=== PATIENT | male | born 1940 | race Caucasian/White ===

== ENCOUNTER → 2019-09-28 07:45 | Outpatient (BNVA) | payer BC, SELFPAY | PROVIDERS: Family Provider Internal Medicine; PCP Internal Medicine; Visit Provider Specialist | DX: M46.96 Unspecified inflammatory spondylopathy, lumbar region (principal); F41.9 Anxiety disorder, unspecified; Z87.891 Personal history of nicotine dependence | CPT/HCPCS: 99213 ==

== ENCOUNTER → 2019-12-27 07:46 | Outpatient (BNVA) | payer BC, SELFPAY | PROVIDERS: Family Provider Internal Medicine; PCP Internal Medicine; Visit Provider Specialist | DX: G89.29 Other chronic pain (principal); M48.07 Spinal stenosis, lumbosacral region; R29.90 Unspecified symptoms and signs involving the nervous system; M54.16 Radiculopathy, lumbar region; M48.061 Spinal stenosis, lumbar region without neurogenic claudication; Z79.891 Long term (current) use of opiate analgesic | CPT/HCPCS: 99213 ==

== ENCOUNTER → 2020-03-27 07:54 | Outpatient (BNVA) | payer BC, SELFPAY | PROVIDERS: Family Provider Internal Medicine; PCP Internal Medicine; Visit Provider Specialist | DX: M48.061 Spinal stenosis, lumbar region without neurogenic claudication (principal) | CPT/HCPCS: 99213 ==

== ENCOUNTER → 2020-08-15 14:42 | Outpatient (BNVA) | payer BC, SELFPAY | PROVIDERS: Family Provider Internal Medicine; PCP Internal Medicine; Visit Provider Specialist | DX: M48.061 Spinal stenosis, lumbar region without neurogenic claudication (principal); M54.16 Radiculopathy, lumbar region; R29.90 Unspecified symptoms and signs involving the nervous system; Z87.891 Personal history of nicotine dependence | CPT/HCPCS: 99214 ==

== ENCOUNTER → 2020-11-06 08:45 | Outpatient (BNVA) | payer BC, SELFPAY | PROVIDERS: Family Provider Internal Medicine; PCP Internal Medicine; Visit Provider Specialist | DX: M48.061 Spinal stenosis, lumbar region without neurogenic claudication (principal); M54.16 Radiculopathy, lumbar region; Z87.891 Personal history of nicotine dependence | CPT/HCPCS: 99213; 99214 ==

== ENCOUNTER → 2021-01-29 12:52 | Outpatient (BNVA) | payer BC, SELFPAY | PROVIDERS: Family Provider Internal Medicine; PCP Internal Medicine; Visit Provider Specialist | DX: M54.16 Radiculopathy, lumbar region (principal); M48.061 Spinal stenosis, lumbar region without neurogenic claudication; Z79.891 Long term (current) use of opiate analgesic; Z87.891 Personal history of nicotine dependence | CPT/HCPCS: 99213; 99214 ==

== ENCOUNTER → 2021-04-30 08:06 | Outpatient (BNVA) | payer MEDICARE, SELFPAY | PROVIDERS: Family Provider Internal Medicine; PCP Internal Medicine; Visit Provider Specialist | DX: M48.061 Spinal stenosis, lumbar region without neurogenic claudication (principal); M54.16 Radiculopathy, lumbar region | CPT/HCPCS: 99213; 99214 ==

== ENCOUNTER → 2021-09-19 07:59 | Outpatient (BNVA) | payer MEDICARE, SELFPAY | PROVIDERS: Family Provider Internal Medicine; PCP Internal Medicine; Visit Provider Specialist | DX: M54.16 Radiculopathy, lumbar region (principal); Z79.891 Long term (current) use of opiate analgesic | CPT/HCPCS: 99213 ==

== ENCOUNTER → 2021-12-12 08:29 | Outpatient (BNVA) | payer MEDICARE, SELFPAY | PROVIDERS: Family Provider Internal Medicine; PCP Internal Medicine; Visit Provider Specialist | DX: M48.061 Spinal stenosis, lumbar region without neurogenic claudication (principal); F41.9 Anxiety disorder, unspecified; Z79.891 Long term (current) use of opiate analgesic | CPT/HCPCS: 99213; 99214 ==

== ENCOUNTER → 2022-04-01 13:02 | Outpatient (BNVA) | payer MEDICARE, SELFPAY | PROVIDERS: Family Provider Internal Medicine; PCP Internal Medicine; Visit Provider Specialist | DX: M47.20 Other spondylosis with radiculopathy, site unspecified (principal); M48.00 Spinal stenosis, site unspecified; F41.9 Anxiety disorder, unspecified; Z79.891 Long term (current) use of opiate analgesic | CPT/HCPCS: 99213; 99214 ==

== ENCOUNTER 2022-06-28 08:37 | Outpatient (CLI) | payer MEDICARE, SELFPAY ==
--- NOTE | 2022-06-28 09:00 | MR_ITS ---
WS: [id number] MRI LUMBAR SPINE NONCONTRAST HISTORY: Spinal stenosis. Chronic back pain. COMPARISON: 10/27/2012 TECHNIQUE: Sagittal and axial multisequence imaging is submitted. Mild straightening of the normal upper lumbar lordosis. Increase in the lower lumbar lordosis. 1 to 2 mm retrolisthesis of L1-L4. No fractures or marrow edema. There is mild anterior wedging of T12 and L1. Disc spaces are narrowed and moderately desiccated. Conus terminates normally at L1-2 disc level. L1-L2: Normal. L2-L3: Mild annular disc bulging and osteophytosis encroaching upon the ventral thecal sac. Moderate ligamentum flavum and facet arthritis. Mild central, bilateral subarticular recess and foraminal narr owing. L3-L4: Diffuse osteophytic ridging with retrolisthesis of L3. Mild annular disc bulging with ligament um flavum and facet arthritis. Mild central stenosis. Disc and osteophyte encroachment into the subar ticular recesses and foramen. Moderate subarticular recess and foraminal stenosis. L4-L5: Mild retrolisthesis of L4. Annular disc bulging with osteophytosis. Severe ligamentum flavum h ypertrophy and facet arthritis. Fluid in the facet joints. Moderate central stenosis. Severe bilatera l subarticular recess and foraminal stenosis. There is encroachment upon both the L4 and L5 nerve ward ts. L5-S1: Mild annular disc bulging with ligamentum flavum and facet arthritis. Very small central disc protrusion. Mild bilateral foraminal stenosis. Paravertebral soft tissues demonstrate renal atrophy. Mild atherosclerosis aorta. MR/MR lumbar spine wo con* [id number] IMPRESSION: 1. 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 2. Moderate central stenosis at L4-5 with severe bilateral subarticular recess and foraminal stenosis. There is encroachment upon the L4 and L5 nerve roots b ilaterally. 3. Mild central, bilateral subarticular recess and foraminal stenosis at L2-3. 4. Mild central stenosis at L3-4 with moderate subarticular recess and foramin al stenosis. 5. Mild foraminal stenosis at L5-S1. 6. Mild anterior wedging of T12 and L1. Similar to the prior study.
--- NOTE | 2022-06-28 09:45 | MR_ITS ---
WS: [id number] MRI THORACIC SPINE without contrast HISTORY: M48.061 - Spinal stenosis, lumbar region without neurogen... COMPARISON: None available. TECHNIQUE: Multiplanar sequences are performed in sagittal and axial planes. Straightening of the normal thoracic lordosis. More focal kyphosis at the thoracolumbar junction. Sub tle area of increased T2 signal within the T8 vertebral body. This is of very low signal on the T1 se quence. Mild anterior wedging of T8-L1. T1-2: Small central disc protrusion. Mild foraminal narrowing due to facet disease. T2-3: Normal. T3-4: Normal. T4-5: Normal. T5-6: Mild facet arthritis. T6-7: Mild facet arthritis. T7-8: Moderate LEFT paracentral disc protrusion with no cord contact. T8-9: Mild facet arthritis. T9-10: Mild bilateral facet arthritis and foraminal narrowing. T10-11: Mild annular disc bulging and osteophytic ridging. Moderate facet joint arthritis with encro achment into the foramina. Small RIGHT paracentral disc osteophyte. T11-12: Mild foraminal narrowing and facet arthritis. Small lesions scattered throughout the liver are probably cysts. These can be further evaluated by ul trasound or CT. Mild atherosclerosis aorta. MR/MR thoracic spin wo con* [id number] IMPRESSION: 1. Very minimal anterior wedging of T8-L1. No acute fracture. 2. Mild increased signal in the T8 vertebral body with very low signal on the T1 sequences. Trabecular injury versus metastatic disease. Consider follow-up b one scan imaging. 3. Moderate LEFT paracentral disc protrusion at T7-8 without significant steno sis. 4. Small central disc protrusion at T1-2. 5. Moderate facet joint arthritis at T10-11. Small RIGHT paracentral disc oste ophyte at T10-11. 6. Scattered lesions within the liver. These may be cysts. Consider follow-up ultrasound evaluation.
== END 2022-06-28 08:38 | disposition home or self-care (01) ==
LOC: RAD 08:37
PROVIDERS: PCP Internal Medicine; Visit Provider Specialist
DX: M48.061 Spinal stenosis, lumbar region without neurogenic claudication (principal); M54.16 Radiculopathy, lumbar region; M51.24 Other intervertebral disc displacement, thoracic region; M47.814 Spondylosis without myelopathy or radiculopathy, thoracic region; K76.9 Liver disease, unspecified; M25.78 Osteophyte, vertebrae; M48.07 Spinal stenosis, lumbosacral region; M48.55XA Collapsed vertebra, not elsewhere classified, thoracolumbar region, initial encounter for fracture
CPT/HCPCS: 72146; 72148

== ENCOUNTER → 2022-07-31 08:22 | Outpatient (BNVA) | payer MEDICARE, SELFPAY | PROVIDERS: PCP Internal Medicine; Visit Provider Specialist | DX: M47.26 Other spondylosis with radiculopathy, lumbar region (principal); G40.309 Generalized idiopathic epilepsy and epileptic syndromes, not intractable, without status epilepticus; M48.061 Spinal stenosis, lumbar region without neurogenic claudication; Y93.9 Activity, unspecified | CPT/HCPCS: 99214 ==

== ENCOUNTER → 2022-09-26 08:51 | Outpatient (BNVA) | payer MEDICARE, SELFPAY | PROVIDERS: PCP Internal Medicine; Visit Provider Orthopaedic Surgery | DX: M54.16 Radiculopathy, lumbar region (principal); M47.816 Spondylosis without myelopathy or radiculopathy, lumbar region; M47.814 Spondylosis without myelopathy or radiculopathy, thoracic region | CPT/HCPCS: 72072; 72110; 99204 ==

== ENCOUNTER → 2022-10-29 07:55 | Outpatient (BNVA) | payer MEDICARE, SELFPAY | PROVIDERS: PCP Internal Medicine; Visit Provider Specialist | DX: G40.309 Generalized idiopathic epilepsy and epileptic syndromes, not intractable, without status epilepticus (principal); M47.816 Spondylosis without myelopathy or radiculopathy, lumbar region; M48.061 Spinal stenosis, lumbar region without neurogenic claudication; S22.000A Wedge compression fracture of unspecified thoracic vertebra, initial encounter for closed fracture; X58.XXXA Exposure to other specified factors, initial encounter; Z79.891 Long term (current) use of opiate analgesic | CPT/HCPCS: 99213 ==

== ENCOUNTER → 2022-12-03 08:54 | Outpatient (BNVA) | payer MEDICARE, SELFPAY | PROVIDERS: PCP Internal Medicine; Visit Provider Orthopaedic Surgery | DX: M54.16 Radiculopathy, lumbar region (principal); M48.062 Spinal stenosis, lumbar region with neurogenic claudication | CPT/HCPCS: 99214 ==

== ENCOUNTER → 2023-01-29 09:15 | Outpatient (BNVA) | payer MEDICARE, SELFPAY | PROVIDERS: PCP Internal Medicine; Visit Provider Specialist | DX: G40.309 Generalized idiopathic epilepsy and epileptic syndromes, not intractable, without status epilepticus (principal); M48.062 Spinal stenosis, lumbar region with neurogenic claudication; F41.9 Anxiety disorder, unspecified; Z79.891 Long term (current) use of opiate analgesic | CPT/HCPCS: 99214 ==

== ENCOUNTER → 2023-04-30 07:59 | Outpatient (BNVA) | payer MEDICARE, SELFPAY | PROVIDERS: PCP Internal Medicine; Visit Provider Specialist | DX: M48.062 Spinal stenosis, lumbar region with neurogenic claudication; G40.309 Generalized idiopathic epilepsy and epileptic syndromes, not intractable, without status epilepticus; M54.16 Radiculopathy, lumbar region; F41.9 Anxiety disorder, unspecified | CPT/HCPCS: 99214 ==

== ENCOUNTER → 2023-07-22 09:42 | Outpatient (BNVA) | payer MEDICARE, SELFPAY | PROVIDERS: PCP Internal Medicine; Visit Provider Specialist | DX: M54.16 Radiculopathy, lumbar region (principal); M48.062 Spinal stenosis, lumbar region with neurogenic claudication | CPT/HCPCS: 99213 ==

== ENCOUNTER → 2023-10-14 07:49 | Outpatient (BNVA) | payer MEDICARE, SELFPAY | PROVIDERS: PCP Dermatology; Visit Provider Specialist | DX: M54.16 Radiculopathy, lumbar region (principal); M48.062 Spinal stenosis, lumbar region with neurogenic claudication | CPT/HCPCS: 99213 ==

== ENCOUNTER → 2024-01-13 09:18 | Outpatient (BNVA) | payer MEDICARE, SELFPAY | PROVIDERS: Visit Provider Specialist | DX: M54.16 Radiculopathy, lumbar region (principal); G40.309 Generalized idiopathic epilepsy and epileptic syndromes, not intractable, without status epilepticus | CPT/HCPCS: 99213 ==

== ENCOUNTER → 2024-04-23 07:53 | Outpatient (BNVA) | payer MEDICARE, SELFPAY | PROVIDERS: PCP Dermatology; Visit Provider Specialist | DX: M54.16 Radiculopathy, lumbar region (principal); G40.309 Generalized idiopathic epilepsy and epileptic syndromes, not intractable, without status epilepticus | CPT/HCPCS: 99213; 99214 ==

== ENCOUNTER → 2024-05-06 07:54 | Outpatient (BNVA) | payer MEDICARE, SELFPAY | PROVIDERS: PCP Dermatology; Visit Provider Orthopaedic Surgery | DX: Z01.818 Encounter for other preprocedural examination (principal); M48.062 Spinal stenosis, lumbar region with neurogenic claudication | CPT/HCPCS: 99214 ==

== ENCOUNTER → 2024-06-24 07:43 | Outpatient (BNVA) | payer MEDICARE, SELFPAY | PROVIDERS: PCP Dermatology; Visit Provider Specialist | DX: M54.16 Radiculopathy, lumbar region (principal); G40.309 Generalized idiopathic epilepsy and epileptic syndromes, not intractable, without status epilepticus | CPT/HCPCS: 99213 ==

== ENCOUNTER → 2024-09-23 07:55 | Outpatient (BNVA) | payer MEDICARE, SELFPAY | PROVIDERS: PCP Dermatology; Visit Provider Specialist | DX: M54.16 Radiculopathy, lumbar region (principal); G40.309 Generalized idiopathic epilepsy and epileptic syndromes, not intractable, without status epilepticus; R03.0 Elevated blood-pressure reading, without diagnosis of hypertension; M48.062 Spinal stenosis, lumbar region with neurogenic claudication | CPT/HCPCS: 99214 ==

== ENCOUNTER → 2025-02-04 08:43 | Outpatient (BNVA) | payer MEDICARE, SELFPAY | PROVIDERS: PCP Dermatology; Visit Provider Specialist | DX: M54.16 Radiculopathy, lumbar region (principal); G40.309 Generalized idiopathic epilepsy and epileptic syndromes, not intractable, without status epilepticus; R03.0 Elevated blood-pressure reading, without diagnosis of hypertension; M48.062 Spinal stenosis, lumbar region with neurogenic claudication | CPT/HCPCS: 99213 ==

== ENCOUNTER → 2025-05-16 08:32 | Outpatient (BNVA) | payer MEDICARE, SELFPAY | PROVIDERS: PCP Dermatology; Visit Provider Specialist | DX: M54.16 Radiculopathy, lumbar region (principal); G40.309 Generalized idiopathic epilepsy and epileptic syndromes, not intractable, without status epilepticus; M48.062 Spinal stenosis, lumbar region with neurogenic claudication; R03.0 Elevated blood-pressure reading, without diagnosis of hypertension | CPT/HCPCS: 99213 ==